=== PATIENT | male | born 1975 | race Caucasian/White ===

== ENCOUNTER 2016-05-30 15:56 | Inpatient (IN) | payer OTHER ==
[~2016-05-30] VITALS: Ht 182.9 cm; Wt 87.6 kg
[2016-05-30 16:05] VITALS: O2SAT 98
[2016-05-30] MEDS ORDERED: ONDANSETRON HCL 4 MG/2 ML VIAL ONE (16:05)
[2016-05-30] MEDS ORDERED: MORPHINE SULFATE 8 MG/ML INJ ONE (16:05)
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
[2016-05-30] MEDS ORDERED: DIPHTH/TETANUS/ACEL PERTUSSIS (BOOSTER) 0.5 ML VIAL/PFS IM ONE ×2 (16:16→16:24)
[2016-05-30] MEDS ORDERED: IOHEXOL 350 MG/ML 10 ML VIAL (for RAD DIAG) IV ONE (16:18)
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
[2016-05-30 16:25] LABS: I-STAT POTASSIUM 4.1 MMOL/L (3.5-4.9)
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
[2016-05-30] MEDS ORDERED: MORPHINE SULFATE 4 MG/ML INJ IV ONE (16:30)
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
[2016-05-30 16:32] LABS: AUTOMATED NEUTROPHIL # 9.6 TH/MM3 (1.8-7.7); BASOPHIL # 0.1 TH/MM3 (0-0.2); BASOPHIL % 0.6 % (0.0-2.0); EOSINOPHIL # 0.3 TH/MM3 (0-0.4); EOSINOPHIL % 2.2 % (0.0-4.0); HEMATOCRIT 43.6 % (39.0-51.0); HEMO FLAGS DIFF FINAL; LYMPH % 18.2 % (9.0-44.0); LYMPHOCYTE # 2.5 TH/MM3 (1.0-4.8); MEAN CELL VOLUME 94.4 FL (80.0-100.0); MEAN CORPUSCULAR HEMOGLOBIN 31.4 PG (27.0-34.0); MEAN CORPUSCULAR HGB CONC 33.2 % (32.0-36.0); MONO % 8.6 % (0.0-8.0); NEUT % 70.4 % (16.0-70.0); PLATELET COUNT 259 TH/MM3 (150-450); RED BLOOD COUNT 4.61 MIL/MM3 (4.50-5.90); RED CELL DISTRIBUTION WIDTH 13.3 % (11.6-17.2); WHITE BLOOD COUNT 13.7 TH/MM3 (4.0-11.0)
[2016-05-30 16:34] LABS: APTT (PATIENT) 22.4 SEC (24.3-30.1); PROTHROMBIN TIME - PATIENT 10.9 SEC (9.8-11.6)
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
[2016-05-30 16:40] VITALS: BP 118/66; PULSE 76; RESP 16; O2SAT 98
[2016-05-30] MEDS ORDERED: MORPHINE SULFATE 4 MG/ML INJ IV PUSH ONE (16:45)
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
[2016-05-30] MEDS ORDERED: SODIUM CHLORIDE 0.9% FLUSH 5 ML FLUSH IVF PRN (17:15)
[2016-05-30] MEDS ORDERED: Post-op Orders (for Pharmacy) MISC XX ONE (17:15)
[2016-05-30] MEDS ORDERED: ENOXAPARIN SODIUM 40 MG/0.4 ML SYRINGE SQ SCH (18:00)
[2016-05-30 18:30] VITALS: BP 131/89; PULSE 80; RESP 16; O2SAT 98
[2016-05-30] MEDS ORDERED: LISI-515 PO (18:42)
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
[2016-05-30] MEDS ORDERED: MAGNESIUM HYDROXIDE SUSP 30 ML CUP PO PRN (20:15)
[2016-05-30] MEDS: HYDROmorphone HCL PF 1 MG/ML VIAL IV PRN (20:46)
[2016-05-30] MEDS ORDERED: DOCUSATE SODIUM 100 MG CAP PO SCH (21:00)
[2016-05-30 21:05] VITALS: BP 122/71; PULSE 87; RESP 17; TEMP 97.6; O2SAT 95
[2016-05-30] MEDS: CYCLOBENZAPRINE HCL 10 MG TAB PO SCH (21:38)
[2016-05-30] MEDS: oxyCODONE/ACETAMINOPHEN 5 MG/325 MG TAB PO PRN (21:38)
[2016-05-30] MEDS: NAPROXEN 375 MG TAB PO SCH (21:38)
[2016-05-30] MEDS: SODIUM CHLORIDE 0.9% FLUSH 5 ML FLUSH IVF SCH (21:39)
[2016-05-31 00:20] VITALS: BP 91/51; PULSE 70; RESP 17; TEMP 96.5; O2SAT 96
[2016-05-31] MEDS: HYDROmorphone HCL PF 1 MG/ML VIAL IV PRN ×2 (01:07→06:02)
[2016-05-31] MEDS: oxyCODONE/ACETAMINOPHEN 5 MG/325 MG TAB PO PRN ×3 (02:28→13:16)
[2016-05-31 04:20] VITALS: BP 104/64; PULSE 58; RESP 17; TEMP 97; O2SAT 97
[2016-05-31] MEDS: NAPROXEN 375 MG TAB PO SCH ×2 (05:09→13:16)
[2016-05-31] MEDS: CYCLOBENZAPRINE HCL 10 MG TAB PO SCH ×2 (05:09→13:16)
[2016-05-31 06:53] LABS: AUTOMATED NEUTROPHIL # 7.5 TH/MM3 (1.8-7.7); BASOPHIL % 0.3 % (0.0-2.0); EOSINOPHIL # 0.4 TH/MM3 (0-0.4); HEMO FLAGS DIFF FINAL; LYMPH % 22.4 % (9.0-44.0); LYMPHOCYTE # 2.7 TH/MM3 (1.0-4.8); MEAN CELL VOLUME 94.3 FL (80.0-100.0); MEAN CORPUSCULAR HEMOGLOBIN 32.1 PG (27.0-34.0); MONO % 11.3 % (0.0-8.0); PLATELET COUNT 210 TH/MM3 (150-450); RED BLOOD COUNT 4.13 MIL/MM3 (4.50-5.90); RED CELL DISTRIBUTION WIDTH 13.4 % (11.6-17.2); WHITE BLOOD COUNT 11.9 TH/MM3 (4.0-11.0)
[2016-05-31 08:00] VITALS: BP 135/84; PULSE 67; RESP 16; TEMP 96.1; O2SAT 98
[2016-05-31] MEDS ORDERED: DOCUSATE SODIUM 50 MG/SENNA 8.6 MG TAB PO SCH (09:00)
[2016-05-31] MEDS ORDERED: MAGNESIUM HYDROXIDE SUSP 30 ML CUP PO SCH (09:00)
[2016-05-31] MEDS ORDERED: PNEUMOCOCCAL POLYVALENT INJ 25 MCG/0.5 ML SYR IM ONE (09:00)
[2016-05-31] MEDS ORDERED: FAMOTIDINE 20 MG TAB PO SCH (09:00)
[2016-05-31] MEDS ORDERED: INFLUENZA VIRUS VACCINE (QUADRIVALENT) 0.5 ML SYR IM ONE (09:00)
[2016-05-31] MEDS: SODIUM CHLORIDE 0.9% FLUSH 5 ML FLUSH IVF SCH (10:09)
[2016-05-31 12:00] VITALS: BP 124/74; PULSE 66; RESP 16; TEMP 97.5; O2SAT 98
--- NOTE | 2016-05-31 13:18 | HHI.FF ---
Face to Face Verification Diagnosis: (1) Trauma (2) Compression fracture of L1 lumbar vertebra Physical Therapy Order: Evaluate and Treat, Improve ambulation, Strength and gait training Home Health Nursing Order: Nursing assessment with vital signs I have seen patient Jl Garcia on 05/31/16. My clinical findings support the need for the requested home health care services because: Ltd mobility - disease progression Limited ability to care for self High risk of falls I certify that my clinical findings support that this patient is homebound because: Unsteady gait/balance Etsela Tatum May 31, 2016 13:18
[2016-05-31] MEDS ORDERED: WALKER WHEELS/F1 MIS (13:19)
[2016-05-31] MEDS ORDERED: SENN1TAB PO (13:20)
[2016-05-31] MEDS ORDERED: CYCL1TAB29 PO (13:20)
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
[2016-06-20] MEDS ORDERED: CYCL7.5T33 PO (10:09)
[2016-06-20] MEDS ORDERED: MOBI7.5T PO (10:09)
[2016-06-20] MEDS ORDERED: GABA400C5 PO (10:25)
[2016-07-11] MEDS ORDERED: DICL1GEL TOPICAL (11:39)
[2016-07-11] MEDS ORDERED: AMIT1TAB79 PO (11:39)
[2016-07-11] MEDS ORDERED: CYCL7.5T33 PO (11:39)
[2016-09-04] MEDS ORDERED: CYCL1TAB29 PO (16:11)
[2016-09-04] MEDS ORDERED: MOBI7.5T PO (16:15)
[2016-10-09] MEDS ORDERED: VOLT1GEL4 (13:56)
[2016-10-18] MEDS ORDERED: CYCL1TAB29 PO (16:15)
== END 2016-05-31 16:26 | disposition home or self-care (01) | DRG 552 ==
LOC: NEPI 15:56 → EDBD 17:07 → NEDA 17:07 → N06A 20:57
PROVIDERS: ADMIT Surgery; ATTEND Surgery
DX: S32.019A Unspecified fracture of first lumbar vertebra, initial encounter for closed fracture (principal); V49.59XA Passenger injured in collision with other motor vehicles in traffic accident, initial encounter; Y92.410 Unspecified street and highway as the place of occurrence of the external cause; F12.90 Cannabis use, unspecified, uncomplicated; I10 Essential (primary) hypertension; Z72.0 Tobacco use; Z88.0 Allergy status to penicillin; Z23 Encounter for immunization
CPT/HCPCS: 70450; 71010; 71260; 72125; 72128; 72131; 74177; 82435; 82565; 82947; 84132; 84295; 84520; 85025; 85610; 85730; 86850; 86900; 86901; 90471; 90472; 90686; 90715; 90732; 96374; 96375; 96376; 99291; G0008; G0009; G0390; J1170; J1650; J2270; J2405; L0200; L0484; Q2038; Q9967